=== PATIENT | female | born 1945 | race Two or more races ===

== ENCOUNTER 2018-05-18 19:12 | Emergency (ER) | payer MEDICARE, OTHER ==
[~2018-05-18] VITALS: Ht 152.4 cm; Wt 59.0 kg
[~2018-05-18 19:12] MED LIST: AMLODIPINE BESYL5 MG ORAL; ASPIRIN EC81 MG ORAL; CARVEDILOL3.125 MG ORAL; GLIMEPIRIDE4 MG ORAL; GLUCOPHAGE1000 MG ORAL; LIPITOR40 MG ORAL; PROTONIX20 MG ORAL; hctz PO; losartan PO
[2018-05-18 19:25] VITALS: BP 152/76
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
[2018-05-18] MEDS ORDERED: LIDOCAINE700 M1 TP (21:08)
[2018-05-18] MEDS ORDERED: TYLENOL EXTRA500 MG ORAL (21:08)
[2018-05-18 21:15] VITALS: BP 138/73
== END 2018-05-18 21:15 | disposition home or self-care (01) ==
LOC: EMR 19:39
DX: S09.90XA Unspecified injury of head, initial encounter (principal); S16.1XXA Strain of muscle, fascia and tendon at neck level, initial encounter; V43.62XA Car passenger injured in collision with other type car in traffic accident, initial encounter; Y92.410 Unspecified street and highway as the place of occurrence of the external cause; I10 Essential (primary) hypertension; E11.9 Type 2 diabetes mellitus without complications
CPT/HCPCS: 70450; 72125; 99284